=== PATIENT | female | born 1975 | race Caucasian/White ===

== ENCOUNTER 2018-02-01 20:47 | Inpatient (IN) | payer BC ==
[~2018-02-01] VITALS: Ht 170.2 cm; Wt 113.6 kg
--- NOTE | ~2018-02-01 | OP ---
PATIENT NAME: DORA MCNALLY MEDICAL RECORD: [id number] :73 LOCATION:[id number] ADMISSION DATE:02/01/18 SURGEON: ALVARO MCCRAY MD DATE OF OPERATION: 02/02/2018 PREOPERATIVE DIAGNOSIS: Fracture dislocation of the right ankle -- trimalleolar ankle fracture. POSTOPERATIVE DIAGNOSIS: Fracture dislocation of the right ankle -- trimalleolar ankle fracture. PROCEDURE: Open reduction internal fixation of the trimalleolar ankle fracture. SURGEON: Alvaro Mccray MD ANESTHESIA: General. INTRAOPERATIVE COMPLICATIONS: Essentially none. SUMMARY OF PATHOLOGIC FINDINGS: The lateral fibula was multi-fragmented in this SER IV type fracture. Skin was very tenuous on the medial side. The joint was entirely unstable. OPERATIVE SUMMARY IN DETAIL: After obtaining the appropriate preoperative orthopedic surgery consent as well as anesthetic consultation, evaluation and clearance, the patient was brought to the operating room and placed on the operating table in supine position. After general laryngeal mask airway was administered, tourniquet was placed about the proximal aspect of the right lower extremity. Right extremity was then prepped and draped in routine sterile fashion. Attention was immediately turned to the fibula. Incision was made along the fibula under fluoroscopic guidance. Fracture was identified. The main fragments were placed back together and a plate across technique was used to stabilize. The fibula was stabilized on AP and lateral planes, multiple FiberWires were used to tie in small fragments back into anatomic position about the fibula. Having completed this, a small incision was made on the medial aspect, taken down to the rather large inferior clavicular component. It was then cleared completely of hematoma and periosteum, held in place while 2 cannulated wires were placed across the fracture and then finally two 45 compression screws were placed across the fracture itself. Although slightly cross, good compression was achieved on AP and lateral planes. Wounds were copiously irrigated and closed in the usual fashion. Sterile dressings were applied. Posterior L&U splint was applied. Tourniquet was deflated. The patient was awakened, taken to recovery in stable condition. All final needle and sponge counts were correct. TRANSINT:[id number] Voice Confirmation ID: [id number] DOCUMENT ID: [id number] OPERATIVE REPORT [id number] DORA MCNALLY MD, ALVARO MALHOTRA at 1410 CC: [id number] DICTATION DATE: 02/03/18 1034 POWERTRAIN DESIGN ENGINEER: 02/03/18 1239 ADM IN [facility] [address] [id number]
[~2018-02-01 20:47] MED LIST: BYSTOLIC5 MG PO; HYDROCODONE-APA1 TAB PO
[2018-02-01 21:17] LABS: BASOPHILS 0.3 % (0-2); EOSINOPHILS 0.7 % (0-7); HEMATOCRIT 42.5 % (36.0-48.0); HEMOGLOBIN 14.1 g/dL (12-16); IMMATURE GRANULOCYTES 0.4 % (0-5); LYMPHOCYTES 35.6 % (15-50); MCH 31.4 pg (26.0-34.0); MCHC 33.2 g/dL (31.0-37.0); MCV 94.7 fL (80.0-100.0); MEAN PLATELET VOLUME 11.1 fL (7.4-10.4); PLATELET COUNT 226 10x3/uL (130-400); RBC 4.49 10x6/uL (4.00-5.40); RDW 13.4 % (11.5-14.5); WBC 16.8 10x3/uL (4.8-10.8)
[2018-02-01 21:25] LABS: APTT 26.9 SECONDS (22.8-39.4); INR 1.11 (0.85-1.17); PROTIME 13.9 SECONDS (11.6-15.0)
[2018-02-01 21:31] LABS: ALBUMIN 3.4 g/dL (3.4-5.0); ALKALINE PHOSPHATASE 76 U/L (46-116); ALT (SGPT) 93 U/L (10-68); CALC OSMOLALITY 266 mosm/kg (275-300); CARBON DIOXIDE 21.8 mmol/L (21.0-32.0); CHLORIDE - SERUM 99 mmol/L (98-107); CREATININE - SERUM 0.8 mg/dL (0.6-1.3); GLUCOSE 105 mg/dL (74-106); POTASSIUM - SERUM 3.8 mmol/L (3.5-5.1); PROTEIN - SERUM 7.3 g/dL (6.4-8.2); SODIUM 134 mmol/L (136-145); UREA NITROGEN 10 mg/dL (7-18); eGFR NON AFRICAN AMERICAN 83 mL/min (90-120)
[2018-02-01 22:31] LABS: CREATINE KINASE 223 UL (21-215); MAGNESIUM - SERUM 1.8 mg/dL (1.8-2.4); PRO BNP 105 pg/mL (0-125); TROPONIN-I < 0.017 ng/mL (0.000-0.060)
[2018-02-01 22:56] LABS: CKMB 1.2 U/L (0.0-3.6)
[2018-02-02] VITALS (9 sets, daily range): BP systolic 111–141; BP diastolic 63–116; Ht 170.2 cm; Wt 113.6 kg
[2018-02-02 05:09] LABS: APPEARANCE CLEAR (CLEAR); BILIRUBIN NEGATIVE (NEGATIVE); COLOR YELLOW (YELLOW); GLUCOSE NEGATIVE (NEGATIVE); KETONE NEGATIVE (NEGATIVE); NITRITE NEGATIVE (NEGATIVE); PROTEIN NEGATIVE (NEGATIVE); UROBILINOGEN NORMAL (NORMAL)
[2018-02-02 05:16] LABS: UDS - AMPHET NEGATIVE QUAL (NEGATIVE); UDS - BARB NEGATIVE QUAL (NEGATIVE); UDS - BENZO NEGATIVE QUAL (NEGATIVE); UDS - COCAINE NEGATIVE QUAL (NEGATIVE); UDS - OPIATE POSITIVE QUAL (NEGATIVE); UDS - PCP NEGATIVE QUAL (NEGATIVE); UDS - THC NEGATIVE QUAL (NEGATIVE)
[2018-02-02] MEDS ORDERED: BYSTOLIC10 MG PO (07:08)
[2018-02-02] MEDS ORDERED: CELEXA40 MG PO (07:08)
[2018-02-02] MEDS ORDERED: PROTONIX40 MG PO (07:08)
[2018-02-02 08:35] LABS: HCG SERUM NEGATIVE (NEGATIVE)
[2018-02-03 00:50] VITALS: BP 145/84
[2018-02-03 04:49] VITALS: BP 131/79
[2018-02-03] MEDS ORDERED: ZANAFLEX4 MG PO (07:37)
[2018-02-03] MEDS ORDERED: PERCOCET 10/3251 TA1 PO (07:37)
[2018-02-03] MEDS ORDERED: ELIQUIS2.5 MG PO (07:37)
[2018-02-03 08:19] VITALS: BP 134/83
[2018-02-03 11:13] LABS: BASOPHILS 0.3 % (0-2); EOSINOPHILS 0.7 % (0-7); HEMATOCRIT 39.1 % (36.0-48.0); HEMOGLOBIN 12.5 g/dL (12-16); IMMATURE GRANULOCYTES 0.3 % (0-5); LYMPHOCYTES 12.1 % (15-50); MCH 30.9 pg (26.0-34.0); MEAN PLATELET VOLUME 11.2 fL (7.4-10.4); MONOCYTES 7.1 % (2-11); NEUTROPHILS 79.5 % (40-80); RBC 4.04 10x6/uL (4.00-5.40); RDW 13.9 % (11.5-14.5)
[2018-02-03 11:20] LABS: MCV 96.8 fL (80.0-100.0); PLATELET COUNT 179 10x3/uL (130-400); WBC 11.6 10x3/uL (4.8-10.8)
[2018-02-03 11:37] LABS: ALBUMIN 3.1 g/dL (3.4-5.0); ALKALINE PHOSPHATASE 97 U/L (46-116); CALCIUM 8.3 mg/dL (8.5-10.1); CHLORIDE - SERUM 103 mmol/L (98-107); CREATININE - SERUM 0.8 mg/dL (0.6-1.3); GLUCOSE 126 mg/dL (74-106); POTASSIUM - SERUM 4.1 mmol/L (3.5-5.1); PROTEIN - SERUM 6.9 g/dL (6.4-8.2); SODIUM 137 mmol/L (136-145); eGFR NON AFRICAN AMERICAN 83 mL/min (90-120)
[2018-02-03 11:38] LABS: ALT (SGPT) 168 U/L (10-68); CALC OSMOLALITY 272 mosm/kg (275-300); CARBON DIOXIDE 27.5 mmol/L (21.0-32.0); UREA NITROGEN 5 mg/dL (7-18)
[2018-02-20] MEDS ORDERED: BACTRIM DS TABL1 TAB PO (14:27)
[2018-02-20] MEDS ORDERED: ANTABUSE500 MG PO (14:29)
== END 2018-02-03 14:42 | disposition home or self-care (01) | DRG 493 ==
LOC: D.ER 20:47 → D.EDHOLD 22:02 → D.MS 22:02
PROVIDERS: Anesthesiology; Emergency Medicine; Family Medicine; Nurse Practitioner Family; Orthopaedic Surgery
PROC: 0QSJ04Z Reposition Right Fibula with Internal Fixation Device, Open Approach (ICD-10-PCS; principal; 2018-02-02 09:00)
DX: S82.401A Unspecified fracture of shaft of right fibula, initial encounter for closed fracture (principal); F17.203 Nicotine dependence unspecified, with withdrawal; S82.301A Unspecified fracture of lower end of right tibia, initial encounter for closed fracture; I10 Essential (primary) hypertension; F32.9 Major depressive disorder, single episode, unspecified; W10.9XXA Fall (on) (from) unspecified stairs and steps, initial encounter

== ENCOUNTER 2018-02-21 05:16 | Day surgery (SDC) | payer BC ==
[~2018-02-21] VITALS: Ht 172.7 cm; Wt 122.5 kg
--- NOTE | ~2018-02-21 | OP ---
PATIENT NAME: DORA MCNALLY MEDICAL RECORD: [id number] :73 LOCATION:[facility] ADMISSION DATE: SURGEON: ALVARO MCCRAY MD DATE OF OPERATION: 02/21/2018 PREOPERATIVE DIAGNOSIS: Displaced ankle fracture status post ORIF of the right. POSTOPERATIVE DIAGNOSIS: Displaced ankle fracture status post ORIF of the right. PROCEDURE: Revision ORIF of the right ankle. SURGEON: Alvaro Mccray MD ANESTHESIA: General. INTRAOPERATIVE COMPLICATIONS: None. SUMMARY OF PATHOLOGIC FINDINGS: As seen on the x-ray, the patient had a displaced medial fragment medially and the ankle mortise had shifted laterally. While the patient said she did not walk on this, it does appear that there has been weightbearing based on the radiographs. The recurrent surgery required removal of the medial screws in addition of a syndesmosis screw to the lateral side. OPERATIVE SUMMARY IN DETAIL: After obtaining the appropriate preoperative orthopedic surgery consent as well as anesthetic consultation, evaluation, and clearance, the patient was brought to the operating room and placed on the operating table in the supine position. After adequate general laryngeal mask airway was administered, tourniquet was placed on the proximal aspect of the right lower extremity. Right lower extremity was then prepped and draped in routine sterile fashion. The leg was elevated, exsanguinated, and tourniquet was inflated to 350 mmHg. Routine radiographs were taken in AP and lateral planes to evaluate again where the medial malleolus was and again it was displaced medially with the ankle mortise slid laterally. Again, it does appear that weightbearing has occurred. Attention was first turned to the medial side. Repeat incision was taken down to the level of the medial malleolar fragment. The 2 compression screws that were previously placed were taken out. All of the interposed hematoma and soft tissue was removed. There was some bone loss. After very good removal of all the bone, the medial malleolar fragment was held in reduced position while a 48-mm compression cannulated screw was put into place. There was not room for a second screw, but the component locked in well. For the bone loss, HydroSet from [employer] was used to fill in the void. Care was taken to ligate any in the joint space. Having completed this, on the lateral side, part of the incision was reopened to get direct visualization of the single open screw hole that was left in the very large fragment into place. This was used for the syndesmosis screw. Large [id number] clamp was utilized to clamp the distal aspect of the joint back to more appropriate alignment and then the syndesmosis screw was placed. Clamp was removed and the mortise stayed reduced. Having completed this, the wounds were irrigated and closed in the usual fashion. Sterile dressings were applied. L&U splint was applied. Tourniquet was deflated. The patient was awakened and taken to the recovery room in stable condition. All final needle and sponge counts were correct. OPERATIVE REPORT [id number] DORA MCNALLY TRANSINT:[id number] Voice Confirmation ID: [id number] DOCUMENT ID: [id number] MAHENDRA TERRELL, ALVARO MALHOTRA at 1340 CC: [id number] DICTATION DATE: 02/21/18 0933 GLASS PULVERIZER EQUIPMENT OPERATOR: 02/21/18 1139 [facility] 02/21/[address] [id number]
[~2018-02-21 05:16] MED LIST changes: +ANTABUSE500 MG PO; +BACTRIM DS TABL1 TAB PO; +BYSTOLIC10 MG PO; +CELEXA40 MG PO; +ELIQUIS2.5 MG PO; +PERCOCET 10/3251 TA1 PO; +PROTONIX40 MG PO; +ZANAFLEX4 MG PO
[2018-02-21 06:28] VITALS: BP 118/71; Ht 172.7 cm; Wt 122.5 kg
[2018-02-21 07:00] LABS: HEMATOCRIT 41.1 % (36.0-48.0); HEMOGLOBIN 13.4 g/dL (12-16); MCH 30.5 pg (26.0-34.0); MCHC 32.6 g/dL (31.0-37.0); MCV 93.6 fL (80.0-100.0); MEAN PLATELET VOLUME 12.2 fL (7.4-10.4); RBC 4.39 10x6/uL (4.00-5.40); RDW 13.1 % (11.5-14.5); WBC 9.1 10x3/uL (4.8-10.8)
== END 2018-02-21 10:45 | disposition home or self-care (01) ==
LOC: D.OPS 05:16 → D.PAN 07:30 → D.OPS 07:30 → D.PAN 08:30 → D.OPS 10:45
PROVIDERS: Anesthesiology
DX: S82.91XS Unspecified fracture of right lower leg, sequela (principal); F17.200 Nicotine dependence, unspecified, uncomplicated; I10 Essential (primary) hypertension; Z01.812 Encounter for preprocedural laboratory examination